=== PATIENT | female | born 1950 | race Caucasian/White ===

== ENCOUNTER 2018-03-12 13:49 | Outpatient (CLI) | payer MEDICARE, OTHER | END 2018-03-12 13:50 | disposition home or self-care (01) | LOC: CTENTCT 13:49 | PROVIDERS: ATTEND Specialist | DX: J32.9 Chronic sinusitis, unspecified (principal) | CPT/HCPCS: 70486 ==

== ENCOUNTER 2018-03-25 17:32 | Emergency (ER) | payer MEDICARE, OTHER ==
--- NOTE | 2018-03-25 18:24 | RAD ---
RIGHT RIBS FOUR VIEWS: History: Cough, rib pain. FINDINGS: Lungs are clear. There is calcified granuloma in the upper right lung. No rib fracture or other rib lesion identified. IMPRESSION: No acute finding. POS: [facility]
[2018-03-25] MEDS ORDERED: Ketorolac Tromethamine 30 MG/ML VIAL ONE (18:50)
== END 2018-03-25 19:49 | disposition home or self-care (01) ==
LOC: ERS 17:32
DX: J44.1 Chronic obstructive pulmonary disease with (acute) exacerbation (principal); R07.81 Pleurodynia; E78.5 Hyperlipidemia, unspecified; I10 Essential (primary) hypertension; F41.9 Anxiety disorder, unspecified; F17.210 Nicotine dependence, cigarettes, uncomplicated
CPT/HCPCS: 94640; 96372; J1885; J7620

== ENCOUNTER 2018-03-26 08:03 | Emergency (ER) | payer MEDICARE, OTHER ==
[2018-03-26] MEDS ORDERED: Metoclopramide HCl 10 MG/2 ML VIAL ONE (08:34)
[2018-03-26] MEDS ORDERED: Acetaminophen 500 MG TAB ONE (08:54)
[2018-03-26] MEDS ORDERED: Promethazine 25 MG TAB ONE (08:59)
[2018-03-26] MEDS ORDERED: Ketorolac Tromethamine 30 MG/ML VIAL ONE (09:02)
[2018-03-26] MEDS ORDERED: Pantoprazole 40 MG VIAL ONE (09:38)
[2018-03-26] MEDS ORDERED: Promethazine HCl 25 MG/ML VIAL ONE (11:49)
== END 2018-03-26 13:02 | disposition home or self-care (01) ==
LOC: ERS 08:03
DX: S23.41XA Sprain of ribs, initial encounter (principal); K29.00 Acute gastritis without bleeding; E78.5 Hyperlipidemia, unspecified; I10 Essential (primary) hypertension; J44.9 Chronic obstructive pulmonary disease, unspecified; F41.9 Anxiety disorder, unspecified; F17.210 Nicotine dependence, cigarettes, uncomplicated; Z79.899 Other long term (current) drug therapy; X58.XXXA Exposure to other specified factors, initial encounter
CPT/HCPCS: 96361; 96365; 96372; 96375; C9113; J1885; J2550; J2765

== ENCOUNTER 2018-05-08 07:24 | Outpatient (CLI) | payer MEDICARE, OTHER ==
--- NOTE | 2018-05-08 08:47 | ULT ---
COMPLETE ABDOMEN SONOGRAM: HISTORY: Abdominal pain. Abnormal liver function tests. FINDINGS: The gallbladder has a normal appearance. The common duct is 0.6 cm. The liver is unremarkable witho ut focal mass or intrahepatic biliary dilatation. No free fluid. At the inferior pole of the left k idney, an oval shadowing echogenicity measures up to 1.1 cm. No hydronephrosis. The spleen, right k idney, and visualized portions of the abdominal aorta, IVC, and pancreas are unremarkable. IMPRESSION: 1. No evidence of gallstones or biliary obstruction. 2. No significant hepatic abnormalities demonstrated. 3. Nonobstructing left renal calculus. POS: [facility]
== END 2018-05-08 07:25 | disposition home or self-care (01) ==
LOC: BICULT 07:24
PROVIDERS: ATTEND Internal Medicine Gastroenterology
DX: B19.20 Unspecified viral hepatitis C without hepatic coma (principal); N20.0 Calculus of kidney
CPT/HCPCS: 76700

== ENCOUNTER 2018-12-17 09:20 | Outpatient (CLI) | payer MEDICARE, OTHER ==
--- NOTE | 2018-12-17 09:52 | RAD ---
EXAM: Chest 2 views: HISTORY: Dyspnea COMPARISON: None. FINDINGS: There is a normal-sized cardiomediastinal silhouette. Calcified granuloma projects over the right upp er lobe. No focal infiltrates or pleural effusion are seen. The patient has bilateral calcified breast implants. IMPRESSION: No evidence of acute cardiopulmonary disease
== END 2018-12-17 09:21 | disposition home or self-care (01) ==
LOC: RAD 09:20
PROVIDERS: ATTEND Internal Medicine Critical Care Medicine
DX: R06.00 Dyspnea, unspecified (principal)
CPT/HCPCS: 71046

== ENCOUNTER 2019-06-11 08:49 | Outpatient (CLI) | payer MEDICARE, OTHER ==
--- NOTE | 2019-06-11 09:10 | RAD ---
RADIOGRAPH CHEST 2 VIEW: DATE: 06/11/2019 HISTORY: 69-year-old female with dyspnea FINDINGS: There is hyperinflation of the lungs, consistent with COPD. There is no evidence of airspace density, pulmonary edema, cardiomegaly, pleural effusion, or pneumothorax. Old right posterolateral upper rib fracture deformities. Right upper lobe calcified granuloma. Calcified bilateral breast implants. IMPRESSION: 1) No acute cardiopulmonary findings. 2) emphysema.
== END 2019-06-11 08:50 | disposition home or self-care (01) ==
LOC: RAD 08:49
PROVIDERS: ATTEND Internal Medicine Critical Care Medicine
DX: R06.00 Dyspnea, unspecified (principal); J43.9 Emphysema, unspecified
CPT/HCPCS: 71046